=== PATIENT | female | born 2005 | race African-American/Black ===

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

== ENCOUNTER 2023-05-07 06:49 | Emergency (ER) | payer OTHER, SELFPAY ==
[2023-05-07 06:52] VITALS: BP 117/66; PULSE 92; RESP 18; TEMP 36.7; O2SAT 98
--- NOTE | 2023-05-07 08:22 | ED.GENADULT ---
HPI - General Adult General Chief complaint: Skin/Abscess/Foreign Body Stated complaint: allergic reaction Time Seen by Provider: 05/07/23 07:12 History of Present Illness HPI narrative: 18-year-old female presents to the emergency department for evaluation of potential allergic reaction. Patient states she took an Epsom salt bath last night and did get out her went to her sheets and when she woke up this morning she felt that her hands were swollen and she was having itching and does have some hives. Patient denies any chest pain shortness of breath difficulty breathing or swallowing and denies any swelling of her tongue lips or throat. Patient did take Benadryl at home and states that her symptoms are improving but not resolved. Related Data Allergies Allergy/AdvReac Type Severity Reaction Status Date / Time No Known Allergies Allergy Verified 05/07/23 07:15 Review of Systems Review of Systems: All systems reviewed & are unremarkable except as noted in HPI and below PMFSH Past Medical History Medical History (Updated 05/07/23 @ 10:04 by Augustin Bland MD) No active medical problems Social History Social History (Updated 09/27/21 @ 10:16 by Elina Johnson PA-C) Smoking status: Never smoker Exam Narrative: APPEARANCE: Well appearing, no pain, no distress, well-nourished. HEAD: normocephalic, atraumatic. EYES: PERRLA/EOMI, conjunctivae clear. NOSE: Normal no drainage EARS:TMS clear with good light reflex. THROAT: Pharynx clear, no exudate. NECK: Supple. No adenopathy, no masses. RESPIRATORY: Airway patent, respirations nonlabored. Clear to auscultation bilaterally, no rales, rhonchi, wheezing. CARDIOVASCULAR: Regular rate and rhythm without murmurs rubs or gallops. ABDOMINAL: Soft, nontender, nondistended, normal bowel sounds MUSCULOSKELETAL: Moves all extremities. Strength/ROM intact, No edema, No calf tenderness. NEURO: Alert. Cranial nerves II through XII intact. SKIN: Hives to legs and right forearm Course Course Emergency Course: 18-year-old female presents emerged department for evaluation of a potential allergic reaction. Patient did take Benadryl at home and patient was started on prednisone. Low concern for cellulitis. Rash is consistent with a dermatitis. Patient was updated on the diagnosis and treatment plan for home. All questions and concerns were addressed. Vital Signs Vital signs: Vital Signs Temperature 98.0 F 05/07/23 06:52 Pulse Rate 92 05/07/23 06:52 Respiratory Rate 18 05/07/23 06:52 Blood Pressure 117/66 05/07/23 06:52 Pulse Oximetry 98 05/07/23 06:52 Oxygen Delivery Room Air 05/07/23 06:52 Temperature 98.0 F 05/07/23 06:52 Pulse Rate 92 05/07/23 06:52 Respiratory Rate 18 05/07/23 06:52 Blood Pressure 117/66 05/07/23 06:52 Pulse Oximetry 98 05/07/23 06:52 Oxygen Delivery Room Air 05/07/23 06:52 Medical Decision Making Differential Diagnosis Differential Diagnosis: Dermatitis, blood reaction, cellulitis, eczema Vital Signs Vital Signs: Vital Signs Temperature 98.0 F 05/07/23 06:52 Pulse Rate 92 05/07/23 06:52 Respiratory Rate 18 05/07/23 06:52 Blood Pressure 117/66 05/07/23 06:52 Pulse Oximetry 98 05/07/23 06:52 Oxygen Delivery Room Air 05/07/23 06:52 Temperature 98.0 F 05/07/23 06:52 Pulse Rate 92 05/07/23 06:52 Respiratory Rate 18 05/07/23 06:52 Blood Pressure 117/66 05/07/23 06:52 Pulse Oximetry 98 05/07/23 06:52 Oxygen Delivery Room Air 05/07/23 06:52 Discharge Plan Discharge Clinical Impression: Contact dermatitis Patient Disposition: Home, Self-Care Condition: Stable Instructions: Antibiotic Form, Urticaria (ED), General Allergic Reaction (ED) Additional Instructions: Prednisone as directed over the next 5 days. Benadryl as needed for intermittent itching and rash. Have close follow-up with your primary care physician. Prescriptions:
[2023-05-07] MEDS: predniSONE 40 MG, predniSONE 10 MG 50 MG PO (10:09)
== END 2023-05-07 10:12 | disposition home or self-care (01) ==
PROVIDERS: Emergency Provider Emergency Medicine
DX: L25.9 Unspecified contact dermatitis, unspecified cause (principal)
CPT/HCPCS: 99283; J7512

== ENCOUNTER 2024-05-10 22:59 | Emergency (ER) | payer OTHER, SELFPAY ==
[2024-05-10 23:15] VITALS: BP 93/68; PULSE 74; RESP 14; TEMP 36.5; O2SAT 100
--- NOTE | 2024-05-11 00:40 | PC.NURSE ---
Patient called up to triage area for a room; no answer.
--- NOTE | 2024-05-11 01:01 | PC.NURSE ---
Patient again called to triage area to be taken back to the room; no answer again.
== END 2024-05-11 01:01 | disposition left against medical advice (07) ==
DX: Z53.21 Procedure and treatment not carried out due to patient leaving prior to being seen by health care provider (principal)
CPT/HCPCS: 99199

== ENCOUNTER 2025-03-22 12:32 | Emergency (ER) | payer OTHER, SELFPAY ==
[2025-03-22 12:36] VITALS: BP 122/54; PULSE 80; RESP 16; TEMP 36.4; O2SAT 100
--- OUTSIDE RECORDS SUMMARY | 2025-03-22 12:39 | XMS_ITS | Clinical Summary ---
Author Organization [facility] Address [address] [place] [address] Care Team Providers Care Employee Welfare Manager Name Role Phone Unavailable Primary Care Provider Unavailabl e Source Comments [facility],non-owned Affiliates and Associated Physician Practices is amultiple site organization consisting of ambulatory clinics and hospital sitesin [place], [place], [place] and [place]. This disclosure is being madepursuant to the Care Everywhere program and may not contain all information available regarding this patient. Last updated 18.[facility] [place] Allergies No known active allergies Medications * Be aware that medications may not be up to date on this document. Alwaysverify current medications with the patient. 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 Gender Identity Not on file Sexual Orientation Not on file Last Filed Vital Signs Vital Sign Reading Time Taken Comments Blood Pressure 124/84 09/29/2023 10:58 AM CDT Pulse - - Temperature - - Respiratory Rate - - Oxygen Saturation - - Inhaled Oxygen Concentration - - Weight 78.6 kg (173 lb 3.2 oz) 09/29/2023 10:58 AM CDT Height 167.6 cm (5' 6) 09/29/2023 10:58 AM CDT Body Mass Index 27.96 09/29/2023 10:58 AM CDT Plan of Treatment Health Maintenance Due Date Last Done Comments HIV SCREENING 2018 HPV VACCINE (1 - 3-dose series) 2018 CHLAMYDIA/GONORRHEA SCREENING 2019 MENINGOCOCCAL (Group B) VACCINE SHARED DECISION-MAKING (1 of 2 - Standard) 2019 HEPATITIS C SCREENING 03/23/2021 DTAP/TDAP/TD VACCINES (1 - Tdap) 2022 HEPATITIS B VACCINE (1 of 3 - 19+ 3-dose series) 2022 PAP SMEAR 2024 DEPRESSION SCREENING 07/19/2024 COVID-19 VACCINE (3 - 2024-2 6 season) 2025 02/26/2021, 01/28/2021 INFLUENZA VACCINE (#1) 2025 ZOSTER VACCINE (1 of 2) 2053 MENINGOCOCCAL GROUPS A/C/Y/W VACCINE Completed 05/29/2021 HIB VACCINE Aged Out No longer eligi ble based on patient's age to complete this topic PNEUMOCOCCAL VACCINE Aged Out No long er eligible based on patient's age to complete this topic Insurance JAQUI
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
--- NOTE | 2025-03-22 12:43 | ED.GENADULT ---
HPI - General Adult General Chief complaint: Skin/Abscess/Foreign Body Stated complaint: cyst on labia Time Seen by Provider: 03/22/25 12:35 History of Present Illness HPI narrative: 19 Year old female presenting to the ED with a labial pump was concerned about a partial gland cyst. Patient has noticed that she has had a small raised bump over her right labia for the last 4 days. It is become uncomfortable. She goes other symptoms and is worried she has poor thumb plan cyst. No other symptoms. Related Data Home Medications ?Medication ?Instructions ?Recorded ?Confirmed ?Last Taken ?Type IUD implant 11/07/24 11/07/24 Unknown History Allergies Allergy/AdvReac Type Severity Reaction Status Date / Time No Known Allergies Allergy Verified 03/22/25 12:41 [facility] Past Medical History Medical History Seasonal allergies Surgical History Surgical History H/O bilateral breast reduction surgery Family History Family History Mother Cancer Gastro trophablastic Disease Father Diabetes mellitus Depression Sibling Depression Grandparent Depression Social History Social History Social History: 11/07/24 very confident with medical forms Smoking status: Never smoker Alcohol intake: current Drinks per week: 4 Substance use: current Substance use type: marijuana Do You Feel Safe in your Home?: Yes Lack of Transportation: No Lack of Food: Never True Current Housing: I Have Housing Concerned About Future Housing: No Difficulty Paying Gas/Electric Bills: No Difficulty Paying for Meds: No Currently Unemployed: No Education: High School Diploma/GED Difficulty w/ Childcare or Family Care: No Living arrangements: with roommate(s) Occupation/Education: occupation Gender identity (if verbalized by the patient): Female Sexual Orientation (if Verbalized by the Patient): Straight or Heterosexual Spiritual care concerns: No Agree to blood products: Yes Exam Narrative: APPEARANCE: No apparent distress. Head: atraumatic. EYES: EOMI, NOSE: Atraumatic NECK: Trachea midline RESPIRATORY: No increased rate of breathing CARDIOVASCULAR: RRR, ABDOMINAL: Non-distended genital exam: normal appearing external genitalia. There are 2 ingrown hairs on the right labia. No fluctuant masses. No Bartholin's gland cyst. No cellulitic changes. MUSCULOSKELETAl: No obvious deformities NEURO: Alert. Moving 4/4 extremities SKIN:: Warm, dry. Normal color PSYCHIATRIC: Normal affect Course Vital Signs Vital signs: Vital Signs Temperature 97.6 F 03/22/25 12:36 Pulse Rate 80 03/22/25 12:36 Respiratory Rate 16 03/22/25 12:36 Blood Pressure 122/54 L 03/22/25 12:36 Pulse Oximetry 100 03/22/25 12:36 Oxygen Delivery Room Air 03/22/25 12:36 Temperature 97.6 F 03/22/25 12:36 Pulse Rate 80 03/22/25 12:36 Respiratory Rate 16 03/22/25 12:36 Blood Pressure 122/54 L 03/22/25 12:36 Pulse Oximetry 100 03/22/25 12:36 Oxygen Delivery Room Air 03/22/25 12:36 Medical Decision Making MDM Narrative Medical decision making narrative: -Course: 19-year-old female presenting with what appeared to be 2 ingrown hairs on her right labia. No flex with masses or anything that could be drained at this time. Patient will be discharged with expected management. She is instructed to come back they start to collect fluid or become large and painful. -DDX includes but is not limited to: Ingrown hair, labial abscess, bartholin glland abscess Vital Signs Vital Signs: Vital Signs Temperature 97.6 F 03/22/25 12:36 Pulse Rate 80 03/22/25 12:36 Respiratory Rate 16 03/22/25 12:36 Blood Pressure 122/54 L 03/22/25 12:36 Pulse Oximetry 100 03/22/25 12:36 Oxygen Delivery Room Air 03/22/25 12:36 Temperature 97.6 F 03/22/25 12:36 Pulse Rate 80 03/22/25 12:36 Respiratory Rate 16 03/22/25 12:36 Blood Pressure 122/54 L 03/22/25 12:36 Pulse Oximetry 100 03/22/25 12:36 Oxygen Delivery Room Air 03/22/25 12:36 Discharge Plan Discharge Clinical Impression: Ingrowing hair Patient Disposition: Home Condition: Stable Instructions: Antibiotic Form Additional Instructions: Please follow-up with your primary care physician for further management. Patient Language: Macedonian Prescriptions: No Action IUD implant Patient Comments: UNKNOWN BRAND Follow-up/Referrals: Marie Smith APRN [Primary Care Provider, Family Practice] - 3 Days
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
--- OUTSIDE RECORDS SUMMARY | 2025-03-22 13:06 | XMS_ITS | Encounter Summary ---
Author Organization [facility] Address [address] [place] [address] Care Team Providers Care Mold Sheet Cleaner Name Role Phone Unavailable Primary Care Provider Unavailabl e Encounter Details Date Type Department Care Team (Late st Contact Info) Description 03/20/2025 External Device Data [facility] Provider, Abstract NO ADDRESS ON FILE Social History Tobacco Use Types Packs/Day Years Used Date Smoking Tobacco: Never Feeling Safe Answer Date Recorded Are you in a relationship wi th someone who hurts you emotionally and/or physically? No 01/01/2025 Comments No Sex and Gender Information Value Date Recorded Sex Assigned at Not on file Legal Sex Female 7:44 PM CDT Gender Identity Not on file Sexual Orientation Not on file documented as of this encounter Plan of Treatment Not on file documented as of this encounter Visit Diagnoses Not on filedocumented in this encounter
--- OUTSIDE RECORDS SUMMARY | 2025-03-22 13:06 | XMS_ITS | Clinical Summary ---
Author Organization [facility] Address [address] [place] [address] Care Team Providers Care Display Artist Name Role Phone Unavailable Primary Care Provider Unavailabl e Source Comments [facility],non-owned Affiliates and Associated Physician Practices is amultiple site organization consisting of ambulatory clinics and hospital sitesin [place], [place], [place] and [place]. This disclosure is being madepursuant to the Care Everywhere program and may not contain all information available regarding this patient. 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
== END 2025-03-22 13:07 | disposition home or self-care (01) ==
LOC: ANHED 12:55
PROVIDERS: Emergency Provider Emergency Medicine; PCP Nurse Practitioner Family
DX: L73.1 Pseudofolliculitis barbae (principal)
CPT/HCPCS: 99281